=== PATIENT | male | born 1970 | race Caucasian/White ===

== ENCOUNTER 2017-03-25 08:13 | Outpatient (RCR) | payer BC | END 2017-06-23 | disposition home or self-care (01) | LOC: CARDREHAB | DX: Z48.812 Encounter for surgical aftercare following surgery on the circulatory system (principal); Z95.5 Presence of coronary angioplasty implant and graft ==

== ENCOUNTER 2017-06-26 08:30 | Outpatient (RCR) | payer BC | END 2017-09-24 | disposition home or self-care (01) | LOC: CARDREHAB | DX: Z48.812 Encounter for surgical aftercare following surgery on the circulatory system (principal); Z95.5 Presence of coronary angioplasty implant and graft ==

== ENCOUNTER → 2017-08-04 | Outpatient (CLI) | payer BC | LOC: RAD 14:14 | DX: R10.31 Right lower quadrant pain (principal); N50.811 Right testicular pain ==

== ENCOUNTER 2020-03-01 09:00 | Outpatient (RCR) | payer BC | END 2020-03-12 | disposition still patient (30) | LOC: PT | DX: M75.121 Complete rotator cuff tear or rupture of right shoulder, not specified as traumatic (principal); Z98.890 Other specified postprocedural states ==

== ENCOUNTER → 2021-01-19 | Outpatient (CLI) | payer BC | LOC: LAB 07:49 | DX: Z20.822 Contact with and (suspected) exposure to COVID-19 (principal) ==

== ENCOUNTER → 2021-02-14 | Outpatient (CLI) | payer BC | LOC: LAB 08:30 | DX: Z20.822 Contact with and (suspected) exposure to COVID-19 (principal) ==

== ENCOUNTER → 2021-06-26 | Outpatient (CLI) | payer BC | LOC: RAD 08:48 | DX: K40.90 Unilateral inguinal hernia, without obstruction or gangrene, not specified as recurrent (principal) ==

== ENCOUNTER → 2021-10-08 | Outpatient (CLI) | payer BC | LOC: RAD 10:07 | DX: Z98.890 Other specified postprocedural states (principal); R10.31 Right lower quadrant pain ==

== ENCOUNTER → 2022-09-10 | Outpatient (CLI) | payer BC | LOC: RAD 15:06 | DX: M72.2 Plantar fascial fibromatosis (principal) ==